=== PATIENT | male | born 2000 | race Caucasian/White ===

== ENCOUNTER 2023-09-04 17:51 | Emergency (ER) | payer OTHER, SELFPAY ==
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
[2023-09-04 17:56] VITALS: BP 138/70; PULSE 91; RESP 16; TEMP 36.6; O2SAT 97
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
== END 2023-09-04 20:07 | disposition home or self-care (01) ==
PROVIDERS: Emergency Provider Family Medicine; PCP Internal Medicine
DX: S16.1XXA Strain of muscle, fascia and tendon at neck level, initial encounter (principal); S20.212A Contusion of left front wall of thorax, initial encounter; V43.52XA Car driver injured in collision with other type car in traffic accident, initial encounter
CPT/HCPCS: 71046; 72125; 99284

== ENCOUNTER 2023-09-28 08:07 | Outpatient (CLI) | payer OTHER, SELFPAY ==
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
== END 2023-09-28 08:08 ==
PROVIDERS: PCP Chiropractor; Visit Provider Chiropractor
DX: M54.50 Low back pain, unspecified (principal)
CPT/HCPCS: 72110